=== PATIENT | male | born 1990 | race Caucasian/White ===

== ENCOUNTER → 2016-10-27 | Day surgery (SDC) | payer OTHER ==
[~2016-10-27] VITALS: Ht 185.4 cm; Wt 93.0 kg
[~2016-10-27] MED LIST: CHLOROPROCAINE 2 % INJ PRES.FREE 20 ML VIAL (J2400) As Ordered ONE; CLINDAMYCIN 600 MG in APPROPRIATE DILUENT 1 EA IV ONE; HYDR-3713 PO; IBUP600T26 PO; KETOROLAC 60 MG/2 ML VIAL (J1885) As Ordered ONE; LIDOCAINE 2% INJ 100 MG/5 ML SDV (FOR ANES.) As Ordered ONE; LR 1,000 ML IV ONE; LR 1,000 ML IV SCH; MIDAZOLAM INJ 2 MG/2 ML VIAL (J2250) As Ordered ONE; NORCO, ANEXSIA 5/325MG TABLET (HYDROcodone/ACETAMINOPHEN) PO PRN; ONDANSETRON 4MG/2ML VIAL (J2405) As Ordered ONE; ONDANSETRON 4MG/2ML VIAL (J2405) IV PRN; PROPOFOL 200 MG/20 ML VIAL As Ordered ONE; dexameTHASONE 4 MG/ML 1ML VIAL (J1100) As Ordered ONE; fentaNYL 100 MCG/2 ML INJECTION (J3010) As Ordered ONE; fentaNYL 100 MCG/2 ML INJECTION (J3010) IV PRN
[2016-10-27 12:25] VITALS: BP 137/85
--- NOTE | 2016-10-29 11:03 | RO ---
DATE OF PROCEDURE: 10/27/2016 PREOPERATIVE DIAGNOSIS: Pilonidal cyst. POSTOPERATIVE DIAGNOSIS: Pilonidal cyst. PROCEDURE: Pilonidal cystectomy. SURGEON: Dr. Jeramy Orantes HUMANITIES DEPARTMENT CHAIR: None. ANESTHESIA: Spinal with IV sedation. COMPLICATIONS: None. ESTIMATED BLOOD LOSS: 5. INDICATIONS FOR PROCEDURE: The patient is a 26-year-old male who has had a five year history of a pilonidal cyst who presented to my office for evaluation. On exam, he had a pilonidal cyst. Recommendation to proceed with resection. The risks and benefits include, but are not limited to, bleeding, infection and need for further procedure. Informed consent was obtained and the procedure was planned. PROCEDURE: The patient was brought back to operating room six after sufficient sedation and spinal placement. He was placed in the prone position. The presacral area was sterilely prepped and draped with Betadine. Next, a time out was done to confirm proper patient and proper procedure. Next, an elliptical incision was made surrounding the sinus tract opening in the midline. Following that, electrocautery was used to circumferentially excise down through the skin and subcutaneous tissues all the way to the level of the presacral fascia. The cyst and sinus tract was then removed intact all as one specimen. Electrocautery was used control hemostasis in the base of the wound. The wound was then packed with 4x4s and covered with tape, thus ending the procedure.
== END | disposition home or self-care (01) ==
LOC: M SDC 08:57
PROVIDERS: ATTEND Surgery
DX: L05.91 Pilonidal cyst without abscess (principal); Z88.2 Allergy status to sulfonamides
CPT/HCPCS: 11770; 88304; J1100; J1885; J2250; J2400; J2405; J3010

== ENCOUNTER 2016-10-28 13:27 | Emergency (ER) | payer OTHER ==
[~2016-10-28] VITALS: Ht 185.4 cm; Wt 90.7 kg
[2016-10-28 13:28] VITALS: BP 132/72
[2016-10-28] MEDS ORDERED: IBUP600T26 PO (13:37)
[2016-10-28] MEDS ORDERED: HYDR-3713 PO (13:37)
== END 2016-10-28 14:28 | disposition home or self-care (01) ==
LOC: M ED 13:43
DX: L05.91 Pilonidal cyst without abscess (principal); Z88.1 Allergy status to other antibiotic agents; Z88.2 Allergy status to sulfonamides

== ENCOUNTER → 2025-01-26 | Outpatient (CLI) | payer OTHER ==
[~2025-01-26] MED LIST changes: -CHLOROPROCAINE 2 % INJ PRES.FREE 20 ML VIAL (J2400) As Ordered ONE; -CLINDAMYCIN 600 MG in APPROPRIATE DILUENT 1 EA IV ONE; +IBUP-1022 PO; -IBUP600T26 PO; +ISOVUE-300 61% 100 ML VIAL As Ordered ONE; -KETOROLAC 60 MG/2 ML VIAL (J1885) As Ordered ONE; +LIDOCAINE 1% MDV 20 ML VIAL As Ordered ONE; -LIDOCAINE 2% INJ 100 MG/5 ML SDV (FOR ANES.) As Ordered ONE; -LR 1,000 ML IV ONE; -LR 1,000 ML IV SCH; -MIDAZOLAM INJ 2 MG/2 ML VIAL (J2250) As Ordered ONE; -NORCO, ANEXSIA 5/325MG TABLET (HYDROcodone/ACETAMINOPHEN) PO PRN; -ONDANSETRON 4MG/2ML VIAL (J2405) As Ordered ONE; -ONDANSETRON 4MG/2ML VIAL (J2405) IV PRN; -PROPOFOL 200 MG/20 ML VIAL As Ordered ONE; +TRIAMCINOLONE ACETONIDE SUSP 40MG/ML 1ML VIAL As Ordered ONE; -dexameTHASONE 4 MG/ML 1ML VIAL (J1100) As Ordered ONE; -fentaNYL 100 MCG/2 ML INJECTION (J3010) As Ordered ONE; -fentaNYL 100 MCG/2 ML INJECTION (J3010) IV PRN
== END ==
LOC: M RAD 13:56
PROVIDERS: ATTEND Physician Assistant Surgical
DX: S73.121A Ischiocapsular ligament sprain of right hip, initial encounter (principal); X58.XXXA Exposure to other specified factors, initial encounter; Y92.9 Unspecified place or not applicable
CPT/HCPCS: 20610; 77002; J3301; Q9967